=== PATIENT | male | born 1960 | race Caucasian/White ===

== ENCOUNTER → 2020-06-08 17:54 | Outpatient (CLI) | payer BC, SELFPAY ==
[2020-06-08 20:12] LABS: Coronavirus 19 IgG Antibody Negative (Negative); Coronavirus 19 IgM Antibody Negative (Negative)
== END ==
PROVIDERS: Visit Provider Internal Medicine Gastroenterology
DX: Z01.812 Encounter for preprocedural laboratory examination (principal)
CPT/HCPCS: 36415; 86328

== ENCOUNTER 2020-06-10 10:32 | Day surgery (SDC) | payer BC, SELFPAY ==
[2020-05-30 14:20] VITALS: BMI 23.6
[2020-06-10] VITALS (7 sets, daily range): BP systolic 105–170; BP diastolic 61–85; PULSE 49–58; RESP 18; TEMP 36.2–36.3; O2SAT 93–100
--- NOTE | 2020-06-10 11:48 | P.PN_ITS ---
[facility] Anesthesia Checklist - Structural Data Admitted From: Home Planned Operative Procedure/s: colonoscopy Consent for Planned Operative Procedure(s) Verified: Yes - Airway Assessment C-Spine Mobility Assessed: Yes TMJ Mobility Assessed: Yes Dentition: Poor Dentition - Neurological Assessment Level of Consciousness: Awake, Alert, Appropriate - Anesthesia Plan Anesthesia Risk discussed: Yes Anesthesia Plan: Verified ASA Class: III Anesthesia Type: MAC [facility] History I have reviewed the patient's past medical history: Yes Medical History: Denies:: Cancer, Diabetes Mellitus Type 1, Diabetes Mellitus Type 2, Internal Pacemaker, MRSA, Seizures *Have you ever received a pneumonia vaccine?: No *Have you received a flu vaccine this season?: Yes Anesthesia experience/problems:: none Laterality Cases: Left: Arthroscopy Hip, Other Other Surgeries: No: Pacemaker Amputation: No Fractures: No - *Social History Last grade of school completed: High school graduate Smoking Status: Former smoker Tobacco Type: cigarettes Alcohol Intake: current Alcohol Intake Frequency:: a few times a month Substance Use Type: marijuana *Occupational Status:: employed Housing: house Household Members: significant other *Travel in the last 8 weeks: None Family Hx:: Unable to obtain
--- NOTE | 2020-06-10 12:10 | P.PCN_ITS ---
[facility] Procedure Note Procedure Note:: Colonoscopy Procedure Report: Colonoscopy with cold snare polypectomy, cold biopsy, snare cautery and Endo Clip placement Endoscopist: Kyle Alvarado II, MD Referring physician: ANASTASIIA Esquivel Date of Procedure: June 10, 2020 Equipment: Olympus 180 variable stiffness pediatric colonoscope Sedation: MAC sedation Indication: Mr. Dubon is a 60-year-old gentleman who is here for follow-up screening/surveillance colonoscopy. He does state that his last colonoscopy was 8 or 9 years ago and he had a single polyp removed at that time. He does note rare spot of blood on the toilet tissue from hemorrhoids. He reports no abdominal pain, weight loss, change in his bowel habits or family history of colon cancer. Procedure: Prior to the procedure, a history and physical exam was performed, and patient's medications and allergies were reviewed. The risks, benefits and alternatives of the sedation and procedure were discussed with the patient. All questions were answered and informed consent was obtained. The patient was brought to the procedure room. Patient identification and proposed procedure were verified by the physician and the nurse. The patient was placed in a left lateral decubitus position and the scope was passed under direct vision. Throughout the procedure, the patient's blood pressure, pulse, and oxygen saturations were monitored continuously. The colonoscopy was accomplished without difficulty. The patient tolerated the procedure well. Findings: On digital rectal examination there was normal rectal tone. There were no external hemorrhoids. The prostate was 2+, smooth, soft, symmetric without nodules. The colonoscope was introduced through the anal canal to the rectum and advanced to the cecum. The ileocecal valve and appendiceal orifice were identified. The scope was advanced a short distance into the ileum which appeared grossly normal. There was a raised 4 to 5 mm ileal polypoid lesion that was removed via cold biopsy. The scope was then withdrawn into the colon. There were 4 diminutive polyps in the cecum and ascending colon that were 3 mm and all removed via cold snare polypectomy and placed in cecal formalin jar. There was much larger descending polyp at 40 cm that was 15 mm and removed via snare cautery. This was pedunculated. And Endo Clip was placed over the base of the polypectomy site with complete closure. There was a 6 another diminutive colon 4 mm polyp in the descending colon that was placed in the same formalin jar. Upon retroflexion within the rectum there were grade 1-2 internal hemorrhoids.The preparation was excellent throughout with [place] Preparation Score of 9. The cecal time was 14 minutes. Impression: 1. Descending colon polyp (15 mm) 2. Additional 5 diminutive colon polyps 3. Diminutive ileal nodule (4 to 5 mm) 4. Grade 1-2 internal hemorrhoids Plan: I will follow up the polyp pathology and recommend repeat colonoscopy again in 3 years based upon the polyp histology. I would encourage bulk fiber supplementation on a long-term daily maintenance basis.
== END 2020-06-10 13:17 | disposition home or self-care (01) ==
LOC: OUTP 10:36
PROVIDERS: PCP Nurse Practitioner; Visit Provider Internal Medicine Gastroenterology
PROC: 0DJD8ZZ Inspection of Lower Intestinal Tract, Via Natural or Artificial Opening Endoscopic (ICD-10-PCS; CPT 45378; principal; 2020-06-10 11:30)
DX: Z12.11 Encounter for screening for malignant neoplasm of colon (principal); Z86.010 Personal history of colon polyps; K63.5 Polyp of colon; K64.0 First degree hemorrhoids
CPT/HCPCS: 45385; 45380

== ENCOUNTER 2021-10-15 10:43 | Emergency (ER) | payer BC, SELFPAY ==
[2021-10-15 11:00] VITALS: BP 141/82; PULSE 72; RESP 19; TEMP 37.1; O2SAT 99; BMI 25.3
--- NOTE | 2021-10-15 11:08 | HMH.EDUTC ---
[facility] [place] Impression: [place] eye disease of left eye Disposition: Home, Self-Care Condition on Discharge: Good Instructions: DI for Conjunctivitis Additional Instructions: follow up with eye md tomorrow apply drops if worsen or no improvement return or be seen in ed Prescriptions: Sulfacetamide Sodium [Sulf-10% opth soln 15mL] 1 drp OP Q6 #15 ml Transmission Status: Pending to [id number] Referrals: Marylou Hardy APRN [Primary Care Provider] - Time of Disposition: 11:13 Medical Decision Making - Gurpreet Inquiry Pt receiving controlled substance: No Vital Signs: 10/15/21 11:00 Temperature 98.7 F Temperature Source Oral Pulse Rate [Right Brachial] 72 Respiratory Rate 19 Blood Pressure [Right Arm] 141/82 H Blood Pressure Mean [Right Arm] 101 Blood Pressure Source [Right Arm] Automatic Cuff Blood Pressure Position [Right Arm] Sitting 02 Sat by Pulse Oximetry 99 Oxygen Delivery Method Room Air [facility] [place] - General Chief complaint: Urgent [facility] Stated complaint: eye pain, unknown origin Time Seen by Provider: 10/15/21 11:08 Mode of Arrival: Ambulatory Source of Information: Patient Limitations: No Limitations Description of Symptoms (Recalled from Triage Doc. by RN): PATIENT C/O REDNESS AND DRAINAGE TO LEFT EYE X 4 DAYS HEENT Symptoms (Recalled from RN notes): Yes Resp Symptoms (Recalled from RN notes): No Skin Symptoms (Recalled from RN notes): No MS Symptoms (Recalled from RN notes): No Functional Status (Recalled from RN notes): WNL - History of Present Illness Provider Complaint: 61 yr old male presnets for left eye drainage and red eye for 3 days. pt states he keeps getting thick green drainage and his eye is sensitive to light. no injury - Related Data Home Medications Medication Instructions Recorded Confirmed atorvastatin 20 mg tablet 20 mg PO DAILY 06/16/21 06/16/21 loratadine 10 mg capsule 10 mg PO DAILY 06/16/21 06/16/21 promethazine-DM 6.25 mg-15 mg/5 mL 5 ml PO Q4-6H PRN 06/16/21 06/16/21 oral syrup triamcinolone acetonide 0.1 % 1 applic TOPICAL BID 06/16/21 06/16/21 topical cream Previous Rx's Medication Instructions Recorded Sulfacetamide Sodium [Sulf-10% 1 drp OP Q6 #15 ml 10/15/21 opth soln 15mL] Allergies Allergy/AdvReac Type Severity Reaction Status Date / Time NO KNOWN DRUG ALLERGIES - Allergy Unknown Uncoded 05/21/17 14:54 NKDA - Worker's Comp Is this a Worker's Comp case?: No [facility] History - Hepatitis A Screen Attestation statement:: This patient has been screened for Hepatitis A risk factors. I have reviewed the patient's past medical history: Yes Medical History: Reports:: Hyperlipidemia Denies:: Cancer, Diabetes Mellitus Type 1, Diabetes Mellitus Type 2, Internal Pacemaker, MRSA, Seizures Other Medical History: Reports: Glaucoma Laterality Cases: Left: Arthroscopy Hip, Other Other Surgeries: Yes: No Previous Surgery, Colonoscopy. No: Pacemaker Amputation: No Fractures: No Comment: left hip and left elbow surgery - Social History Smoking Status: Former smoker Tobacco Type: cigarettes Alcohol Intake: current Alcohol Intake Frequency:: a few times a month Substance Use Type: marijuana Occupational Status: employed Housing: house Household Members: significant other Family Hx:: Unable to obtain ROS Obtained: Yes Systems reviewed as appropriate & no additional complaints - Constitutional Constitutional: Reports system reviewed and no additional complaints, except as docu, Denies fever(s) - Eyes Eyes: Reports system reviewed and no additional complaints, except as docu, Reports eye discharge, Reports irritation, Reports sensitivity to light - ENT Ears, Nose, Mouth, and Throat: Reports system reviewed and no additional complaints, except as docu, Denies dizziness - Cardiovascular Cardiovascular: Reports system reviewed and no additional complaints, except as docu, Denies chest pain
[2021-10-15 11:11] VITALS: BP 141/82; PULSE 72; RESP 19; TEMP 37.1; O2SAT 99
== END 2021-10-15 11:18 | disposition home or self-care (01) ==
PROVIDERS: Emergency Provider Nurse Practitioner Family; PCP Nurse Practitioner Family
DX: H10.022 Other mucopurulent conjunctivitis, left eye (principal)
CPT/HCPCS: 99212; G0463

== ENCOUNTER → 2023-01-05 08:46 | Outpatient (CLI) | payer BC, SELFPAY ==
[2023-01-05 09:11] LABS: Basophils # 0.1 K/mm3 (0-0.2); Basophils % 0.8 % (0.1-2.0); Eosinophils # 0.4 K/mm3 (0.0-0.4); Eosinophils % 3.9 % (0.1-12.0); Hematocrit 49.2 % (42.0-52.0); Hemoglobin 15.9 g/dL (14.1-18.0); Lymphocytes # 3.2 K/mm3 (0.7-4.5); Mean Corpuscular HGB Conc 32.4 g/dL (31.8-35.4); Mean Corpuscular Hemoglobin 29.1 pg (27.0-31.2); Mean Corpuscular Volume 89.8 fl (80-94); Mean Platelet Volume 7.6 fl (7.4-10.4); Monocytes # 0.6 K/mm3 (0.1-1.0); Monocytes % 5.9 % (1.7-9.3); Neutrophils # 5.7 K/mm3 (1.8-7.8); Neutrophils % 57.4 % (37.0-80.0); Platelet Count 389 K/mm3 (142-424); Red Blood Count 5.48 M/mm3 (4.60-6.20); Red Cell Distribution Width 13.3 % (11.5-17.5); White Blood Count 9.8 K/mm3 (4.8-10.8)
[2023-01-05 10:22] LABS: Alanine Aminotransferase 22 U/L (12-78); Albumin Level 4.8 g/dl (3.5-5.0); Albumin/Globulin Ratio 1.5 (1.1-1.8); Alkaline Phosphatase 96 U/L (38-126); Aspartate Amino Transferase 26 U/L (17-59); Bilirubin,Total 0.4 mg/dl (0.2-1.3); Blood Urea Nitrogen 17 mg/dl (9-20); Calcium 10.2 mg/dl (8.4-10.2); Carbon Dioxide 24 mmol/L (22.0-30.0); Chloride 110 mmol/L (98-107); Chol/HDL Ratio 5.4 (1-3.5); Cholesterol 299 mg/dl (140-200); Estimated Glomerular Filt Rate 98 ml/min (>60); GFR (African American) 118 ML/MIN (>60); Globulin 3.1 g/dL (1.3-3.2); Glucose 94 mg/dl (74-100); HDL Cholesterol 55 mg/dl (40-60); Sodium 143 mmol/L (136-145); Total Protein,Serum 7.9 g/dl (6.3-8.2); Triglycerides 208 mg/dl (30-150); VLDL Cholesterol 42 mg/dL (0-40)
[2023-01-05 10:32] LABS: Direct LDL Cholesterol 170.71 mg/dL (100-129)
[2023-01-05 10:52] LABS: Thyroid Stimulating Hormone 1.56 uIU/mL (0.465-4.68)
== END ==
PROVIDERS: PCP Nurse Practitioner Family; Visit Provider Nurse Practitioner Family
DX: R00.1 Bradycardia, unspecified (principal)
CPT/HCPCS: 36415; 80053; 80061; 83735; 84443; 85025

== ENCOUNTER → 2023-01-17 14:33 | Outpatient (CLI) | payer BC, SELFPAY ==
[2023-01-17 15:57] LABS: Alanine Aminotransferase 25 U/L (12-78); Albumin Level 4.4 g/dl (3.5-5.0); Alkaline Phosphatase 84 U/L (38-126); Aspartate Amino Transferase 25 U/L (17-59); Bilirubin,Indirect 0.2 mg/dL (0.0-0.9); Bilirubin,Total 0.2 mg/dl (0.2-1.3); Bilirubin,Unconjugated 0.4 mg/dL (0.0-1.1); Chol/HDL Ratio 3.6 (1-3.5); Cholesterol 129 mg/dl (140-200); HDL Cholesterol 36 mg/dl (40-60); Total Protein,Serum 6.9 g/dl (6.3-8.2); Triglycerides 179 mg/dl (30-150); VLDL Cholesterol 36 mg/dL (0-40)
[2023-01-17 16:08] LABS: Direct LDL Cholesterol 65.73 mg/dL (100-129)
== END ==
PROVIDERS: PCP Nurse Practitioner Family; Visit Provider Nurse Practitioner Family
DX: E78.5 Hyperlipidemia, unspecified (principal); I11.9 Hypertensive heart disease without heart failure; R00.1 Bradycardia, unspecified
CPT/HCPCS: 36415; 80061; 80076

== ENCOUNTER → 2023-01-23 14:22 | Outpatient (CLI) | payer BC, SELFPAY | PROVIDERS: PCP Nurse Practitioner Family; Visit Provider Nurse Practitioner Family | DX: R00.1 Bradycardia, unspecified (principal) | CPT/HCPCS: 93225 ==

== ENCOUNTER → 2023-02-11 10:26 | Outpatient (CLI) | payer BC, SELFPAY ==
--- NOTE | 2023-02-11 10:29 | CA_ITS ---
APPROVED REPORT EXAM: Comprehensive 2D, Doppler, and color-flow Echocardiogram Court Officer: Jaye Gutierrez RDCS Ht: 5 ft 8 in Wt: 160lbs BSA: 1.86 BP: 142/70 mmHg Indications: Arrhythmia, Hyperlipidemia, Hypertension/HDD,Bradycardia 2D Dimensions LVOT 2.01 cm (M/F) 1.5-2.5 M-Mode Dimensions RVDd 2.57 cm (0.9-2.6) LA Diam 0.00 cm (1.9-4.0) LVDd 5.25 cm (3.5-5.7) Ao Diam 3.30 cm (2.0-3.7) LVDs 3.36 cm (3.5-5.7) IVSd 1.00 cm (0.6-1.1) PWd 0.93 cm (0.6-1.1) EF (Teich) 65.20% FS 36.00% EDV (Teich) 132.40 mL TAPSE 2.33 (<1.7) ESV (Teich) 46.10 mL LV Diastology E Decel Time 170.00 (160-240 msec) E/A Ratio 1.4 MED E' 8.80 (< 7 cm/sec) E'/MED E' Ratio 10.20 (>14) LAT E' 8.40 (<10 cm/sec) E/LAT E' Ratio 10.69 (>14) Mitral Valve MV E Max Hilario. 90.00 (40-130 cm/s) MV A Velocity 65.00 (40-130 cm/s) E/A Ratio 1.39 MV Decel. Time 170.00 (160-240 ms) MV PHT 50.00 ms Left Ventricle The left ventricle is normal size. The left ventricular systolic function is normal. The left ventricular ejection fraction is within the normal range. There is normal left ventricular wall thickness. There is normal LV segmental wall motion. The left ventricular diastolic function is normal. LVEF is 60%. Right Ventricle The right ventricle is normal size. The right ventricular systolic function is normal. Atria The left atrium size is normal. The right atrium size is normal. There is no Doppler evidence of interatrial shunt. Aortic Valve The aortic valve opens well. There is no aortic valvular stenosis. No aortic regurgitation is present. Mitral Valve The mitral valve is normal in structure. No evidence of mitral valve stenosis. Trace mitral regurgitation. Tricuspid Valve The tricuspid valve leaflets are thin and pliable. Trace tricuspid regurgitation. There is insufficient TR jet to estimate RVSP. Pulmonic Valve The pulmonary valve is normal in structure. Trace pulmonic regurgitation. Great Vessels The aortic root is normal in size. The ascending aorta is normal in size. IVC is normal in size and collapses >50% with inspiration. Pericardium There is no pericardial effusion. Other Information Study Quality: Adequate Conclusion Normal biventricular systolic function. No significant valvular disease. Electronically signed by : Anita Cole, 02/14/2023 22:01:18
== END ==
LOC: RT 10:27
PROVIDERS: PCP Nurse Practitioner Family; Visit Provider Obstetrics & Gynecology
DX: R00.1 Bradycardia, unspecified (principal); E78.5 Hyperlipidemia, unspecified; I10 Essential (primary) hypertension
CPT/HCPCS: 93306

== ENCOUNTER 2023-06-23 12:10 | Emergency (ER) | payer BC, SELFPAY ==
[2023-06-23 13:10] VITALS: BP 146/82; PULSE 102; RESP 20; TEMP 37.4; O2SAT 95; BMI 24.0
[2023-06-23 13:33] LABS: UTC Influenza A Antigen Negative (Negative); UTC Influenza B Antigen Negative (Negative)
[2023-06-23 13:44] VITALS: BP 146/82; PULSE 102; RESP 20; TEMP 37.4; O2SAT 95
--- NOTE | 2023-06-23 13:44 | ED_ITS ---
Discharge Plan Disposition Patient Disposition: Home, Self-Care Condition: Good Prescriptions Prescriptions: No Action aspirin 81 mg tablet 81 mg PO DAILY rosuvastatin [Crestor] 10 mg tablet 10 mg PO DAILY Qty: 30 2RF Referrals Follow up/Referrals: Jason Sanchez MD [Primary Care Provider] - See instructions Activity Restrictions/Add. Instructions Additional Instructions/Restrictions: Monitor Temp, Over the counter Motrin and/or Tylenol as directed/as needed Tylenol every 4 hours and Motrin every 6 hours (as long as your family doctor has told you that you can take it) for fever or pain. and straight to ER if unable to lower temp less than 101.0 after medication given *Make sure you are drinking plenty of fluids *Sleep elevated *Humidifier/Vaporizer may help with nasal congestion and cough Follow up IMMEDIATELY for new or worsening symptoms or no Noticeable improvement over the next 48-72 hours. 911 for difficulty breathing or swal lowing You were tested for today for Upper Respiratory Panel with COVID19 your test result should be back in the next 24hours, you may check your results on the [facility] Clinical Impressions Clinical Impression: Flu-like symptoms Stand Alone Forms Stand Alone Forms: Work/School Release Instructions Patient Instructions: DI for Viral Syndrome, DI for Fever (Symptom) -- Adult, Ibuprofen, Acetaminophen (Alternative Therapy) Discharge ED Provider: Gloria Ortiz [facility] General Stated complaint: bodyaches, headaches Mode of Arrival: Ambulatory Source of Information: Patient Limitations: No Limitations Time Seen by Provider: 06/23/23 13:45 Description of Symptoms (Recalled from Triage Doc. by RN): PATIENT C/O HEADACHE, CHILLS, AND BODY ACHES X 2 DAYS HEENT Symptoms (Recalled from RN notes): Yes Resp Symptoms (Recalled from RN notes): No Skin Symptoms (Recalled from RN notes): No MS Symptoms (Recalled from RN notes): No Functional Status (Recalled from RN notes): WNL History of Present Illness Provider Complaint: Patient states that he was fine until yesterday evening around 4pm then he started with body aches, chills, headache and feeling achy all over that has continued today with fever chills and body aches states that he feels like he has the flu Denies SOA Related Data Home Medications Medication Instructions Recorded Confirmed aspirin 81 mg tablet 81 mg PO DAILY 01/17/23 02/13/23 Previous Rx's Medication Instructions Recorded rosuvastatin 10 mg tablet (Crestor) 10 mg PO DAILY #30 tabs 01/17/23 Allergies Allergy/AdvReac Type Severity Reaction Status Date / Time No Known Allergies Allergy Verified 02/13/23 08:48 Worker's Comp Is this a Worker's Comp case?: No [facility] Disclaimer: The information contained in this section may have been updated after the patient was seen, as this information can be updated by other users. 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 current occupational exposures/hazards: No caffeine: Yes ROS Obtained: Yes All systems reviewed & no additional complaints except as documented and Yes Systems reviewed as appropriate & no additional complaints except as documented Constitutional Constitutional: Reports system reviewed and no additional complaints, except as documented, Reports as per HPI, Reports body ache, Reports chills, Reports fever(s) and Reports headache(s) ENT Ears, Nose, Mouth, and Throat: Reports system reviewed and no additional complaints, except as documented, Reports as per HPI and Reports headache(s) Cardiovascular Cardiovascular: Reports system reviewed and no additional complaints, except as documented, Reports as per HPI and Denies chest pain Respiratory Respiratory: Reports system reviewed and no additional complaints, except as documented, Reports as per HPI, Denies shortness of breath, Denies chest congestion and Denies cough Gastrointestinal Gastrointestingal: Reports system reviewed and no additional complaints, except as documented and as per HPI Neurologic Neurologic: Reports headache(s) Physical Exam General General appearance: alert and in no apparent distress ENT ENT exam: Present mucous membranes moist Expanded ENT Exam Nose exam: Absent sinus tenderness Throat exam: Present normal inspection Respiratory Respiratory exam: Present normal lung sounds bilaterally; Absent respiratory distress or wheezes Cardiovascular Cardiovascular exam: Present regular rate, normal rhythm and normal heart sounds Abdominal Exam Abdominal exam: Present soft and normal bowel sounds; Absent distention or tenderness Neurological Exam Neurological exam: Present alert, oriented X3 and normal gait Medical Decision Making Gurpreet Inquiry Pt receiving controlled substance: No Gurpreet was queried for this patient: No Vital Signs: 06/23/23 13:10 Temperature 99.3 F Temperature Source Oral Pulse Rate [Left Brachial] 102 H Respiratory Rate 20 Blood Pressure [Left Arm] 146/82 H Blood Pressure Mean [Left Arm] 103 Blood Pressure Source [Left Arm] Automatic Cuff Blood Pressure Position [Left Arm] Sitting 02 Sat by Pulse Oximetry 95 Oxygen Delivery Method Room Air Lab Data Lab results reviewed: Yes I reviewed the patient's lab results. Lab Results 06/23/23 13:24: Influenza Type A Ag Negative, Influenza Type B Ag Negative
[2023-06-23 14:02] LABS: Adenovirus,PCR Not Detected (NotDetected); Coronavirus 19, PCR Not Detected (NotDetected); Coronavirus 229E Not Detected (NotDetected); Coronavirus NL63 Not Detected (NotDetected); Coronavirus OC43 Not Detected (NotDetected); Coronovirus HKU1,PCR Not Detected (NotDetected); Human Metapneumovirus Not Detected (NotDetected); Influenza A, PCR Not Detected (NotDetected); Influenza AH1, 2009 Not Detected (NotDetected); Influenza AH1, PCR Not Detected (NotDetected); Influenza B, PCR Not Detected (NotDetected); Parainfluenza 1, PCR Not Detected (NotDetected); Parainfluenza 2, PCR Not Detected (NotDetected); Parainfluenza 3, PCR Not Detected (NotDetected); Parainfluenza 4, PCR Not Detected (NotDetected); Respiratory Syncytial Virus Not Detected (NotDetected); Rhinovirus/Enterovirus Not Detected (NotDetected)
[2023-06-23 16:19] LABS: Influenza AH3,PCR Detected (NotDetected)
== END 2023-06-23 13:54 | disposition home or self-care (01) ==
PROVIDERS: Emergency Provider Nurse Practitioner; PCP Family Medicine
DX: J10.1 Influenza due to other identified influenza virus with other respiratory manifestations (principal); R50.9 Fever, unspecified; R51.9 Headache, unspecified; M79.18 Myalgia, other site; E78.5 Hyperlipidemia, unspecified; I10 Essential (primary) hypertension; Z87.891 Personal history of nicotine dependence
CPT/HCPCS: 87632; 87635; 87804; 99212; 99214; G0463

== ENCOUNTER 2024-08-25 11:48 | Outpatient (CLI) | payer BC, SELFPAY ==
--- NOTE | 2024-08-25 11:52 | XR_ITS ---
FINAL REPORT CLINICAL HISTORY: fall saturday; c/o left shoulder pain COMPARISON: None FINDINGS: 3 views of the left shoulder were obtained. There is no fracture or dislocation. The joint space is preserved. Soft tissues are unremarkable. IMPRESSION: No acute osseous abnormality of the left shoulder. Reviewed, Interpreted and Dictated by Ophelia Costa MD Transcribed by Missy Keating Authenticated and [facility]
--- NOTE | 2024-08-25 11:52 | XR_ITS ---
FINAL REPORT CLINICAL HISTORY: FALL AND PAIN fall saturday; left sided pain FINDINGS: CERVICAL SPINE AP, lateral and oblique views of the cervical spine were obtained. There is no prior exam for comparison. There is no acute fracture or malalignment. Multilevel degenerative disc disease is most pronounced at C6-7. The precervical soft tissues are normal. IMPRESSION: No acute osseous abnormality. THORACIC SPINE AP, lateral, and oblique views of the thoracic spine were obtained. There is no prior exam for comparison. There is no acute fracture or malalignment. Multilevel degenerative disc disease is noted. No acute paraspinal abnormality. IMPRESSION: No acute osseous abnormality. LUMBOSACRAL SPINE AP and lateral views of the lumbosacral spine were obtained. There is no prior exam for comparison. There is no acute fracture or malalignment. Vertebral body heights are preserved. There is multilevel degenerative disc disease which is most pronounced in the upper lumbar spine. No acute paraspinal abnormality. IMPRESSION: No acute osseous abnormality. Reviewed, Interpreted and Dictated by Ophelai Costa MD Transcribed by Missy Keating Authenticated and [facility]
== END 2024-08-25 23:59 | disposition home or self-care (01) ==
LOC: RAD 11:49
PROVIDERS: PCP Nurse Practitioner; Visit Provider Nurse Practitioner
DX: M25.512 Pain in left shoulder (principal); M54.9 Dorsalgia, unspecified
CPT/HCPCS: 72084; 73030

== ENCOUNTER 2024-11-21 14:23 | Emergency (ER) | payer BC, SELFPAY ==
--- OUTSIDE RECORDS SUMMARY | 2024-09-28 00:17 | XMS_ITS | Continuity of Care Document ---
Author Organization [facility] Phone Care Team Providers Care Offal Worker Name Role Phone OLGA DAVILA Admitting RENETTA SUAZO Primary Care OLGA DAVILA Primary Attending ALLERGIES AND ADVERSE REACTIONS ALLERGIES AND ADVERSE REACTIONS Code System Allergy Substance Adverse Reaction Date Reaction (Severity) Comment Status Reported By Updated By No Known Allergies [id number] on March 13, 2024 11:29:01 AM [facility] RESULTS Patient: ALISON Tabares Date of : January 06 LABORATORY RESULTS ORDER 200: PROSTATE SPECIFIC AG PSA (LOINC: 2857-1) ORDER DATE: September 24, 2024 9:19:00 PM [facility] Specimen Source: PLASMA Specimen Type: Plasma specim en PERFORMING LAB: [address] [id number] Result Comment: Final Result Date: September 24, 2024 10:14:00 PM [facility] (TECH: RR) LOINC TEST FLAG RESULT REFERENCE RANGE UPDA WARREN BY 2857-1 Prostate specific Ag [Mass/volume] in Serum or Plasma H 9.2 ng/mL 0 ng/mL - 4.0 ng/mL September 24 10:14:00 PM [facility] (TECH: RR) LABORATORY NARRATIVE RESULTS Information is not available RADIOLOGY RESULTS Information is not available PATHOLOGY NARRATIVE RESULTS Information is not available MICROBIOLOGY RESULTS No Micro Labs/Results Exist for Patient BLOOD ADMIN RESULTS Information is not available MEDICATIONS HOME MEDICATIONS Status RXNORM NDC Medication Dose Route Frequency Dates Comments Reported By Updated By Drug Treatment Unknown DISCHARGE MEDICATIONS Status RXNORM NDC Medication Dose Route Frequency Dates Comments Physician Updated By No Discharge Medication Info rmation Available INPATIENT MEDICATIONS Status RXNORM NDC Medication Dose Route Frequency Rat e Quantity Dates Comments Physician Updated By No Inpatient Medication Info rmation Available SOCIAL HISTORY SOCIAL HISTORY SNOMED-CT Social History Element Description Effective Dates Offered Cessation Comment UpdatedBy [id number] Historical Tobacco smoking status Former Smoker [id number] on March 12, 2024 2:39:46 PM [facility] SOCIAL HISTORY - Gender Sex: Male SOCIAL HISTORY - Status : status i nformation is not available Intention in Next Year: intention information is not available SOCIAL HISTORY - Sexual Behavior Sexual Orientation Gender Identity SNOMED-CT Description SNO MED -CT Description Activity Level No of Partners Partner Type UpdatedBy Information is not available HEALTH CONCERNS Problems Concern Status Health Concern problem infor mation not available. Smoking Status Status Years Used Consumed packs p er day Health Concern smoking histo ry information not available. Family History Concern Status Health Concern family histor y information not available. ENCOUNTERS ENCOUNTER INFORMATION Reason for Visit LABS Admission September 24, 2024 8:42:[address] [id number] Discharge September 24, 2024 8:42:00 PM [facility] DI SCHARGED TO HOME OR SELF CARE ENCOUNTER DIAGNOSES Notes information is not bobbi ilable. Code System Diagnosis Onset Date Diagnosis information is not available. 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 Role on Team Status Start Date End Date Update d By LAKEISHA LAURENT PCP normal September 24, 2024 4:00:00 AM [facility] September 24, 2024 8:42:00 PM [facility] [id number] on September 24, 2024 8:43:45 PM [facility] ART OLGA ODONNELL Attending normal September 24 4:00:00 AM [facility] September 24, 2024 8:42:00 PM [facility] [id number] on September 24, 2024 8:43:45 PM [facility] ART OLGA ODONNELL Admitting normal September 24 4:00:00 AM [facility] September 24, 2024 8:42:00 PM [facility] [id number] on September 24, 2024 8:43:45 PM [facility]
--- OUTSIDE RECORDS SUMMARY | 2024-10-05 10:00 | XMS_ITS | Encounter Summary ---
Author Organization [facility] Address [address] [place] [address] Care Team Providers Care Tire Changer Aircraft Name Role Phone Mello Sanchez MD Primary Care Provider [phone] Reason for Visit * Reason Comments Follow-up Encounter Details Date Type Department Care Team (Late st Contact Info) Description 10/05/2024 10:00 AM EDT Office Visit [facility] [address] [place] [address] Panfilo Hernandez MD [address] [place] [phone] Other secondary cataract of both eyes (Primary Dx); Primary open angle glaucoma (POAG) of both eyes, severe stage Social History Tobacco Use Types Packs/Day Years Used Date Smoking Tobacco: Former Cigarettes 1 43 1 976 - 2019 Passive Smoke Exposure: Past Smokeless Tobacco: Never Sex and Gender Information Value Date Recorded Sex Assigned at Not on file Legal Sex Male 8:37 PM EDT Gender Identity Not on file Sexual Orientation Not on file documented as of this encounter Miscellaneous Notes * Progress Notes - Panfilo Hernandez MD - 10/05/2024 10:00 AM EDT 1) Advanced stage OAG BE, LE>RE: - [place] with ?goniotomy and [facility] at [facility] both eyes in 2022. 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 Cost of SLT Electronically Signed by: Chan Borden MD - 10/05/2024 - 10:22 AM I saw and evaluated the patient with the resident/fellow. I discussed the case with the resident/fellow and agree with the findings and plan as documented. Panfilo Hernandez MD documented in this encounter Plan of Treatment Upcoming Encounters Date Type Department Care Team (Late st Contact Info) Description 01/04/2025 11:30 AM EDT Office Visit [facility] [address] [place] [address] Panfilo Hernandez MD [address] [address] documented as of this encounter Visit Diagnoses Diagnosis Other secondary cataract of both eyes- Primary Primary open angle glaucoma (POAG) of both eyes, severe stage documented in this encounter Additional Health Concerns Assessment Noted Time A fall risk assessment has been complete d for the patient 10/05/2024 9:54 AM EDT A Body Mass Index follow-up plan has been documented for the patient 10/05/2024 10:51 AM EDT documented as of this encounter Care Teams Tire Changer Aircraft Relationship Specialty Start Date End Date Mello Sanchez MD [address] [place] [address] [address] [place] [address] PCP - General 10/14/20 documented as of this encounter
--- OUTSIDE RECORDS SUMMARY | 2024-11-21 14:29 | XMS_ITS | Clinical Summary ---
Author Organization [facility] [employer] Address [address] [place] [address] Care Team Providers Care Aerospace Manager Name Role Phone Unavailable Primary Care Provider Unavailabl e Encounters Date Type Department Care Team Description 10/28/[address] [facility] Central Scheduling [address] [place] [address] Jeronimo Gee MD Elevated prostate specific antigen (PSA) (Primary Dx) from Last 3 Months Social History Tobacco Use Types Packs/Day Years Used Date Smoking Tobacco: Never Assessed Sex and Gender Information Value Date Recorded Sex Assigned at Not on file Legal Sex Male 2:17 PM CDT Gender Identity Not on file Sexual Orientation Not on file Plan of Treatment Health Maintenance Due Date Last Done Comments CT Colonography 1959 Colonoscopy 1959 Colorectal Cancer Screening 1959 FOBT/FIT 1959 Fit-DNA (Cologuard) 1959 Sigmoidoscopy 1959 Depression Screening (12+) 1971 Tobacco Cessation Counseling and Screening (12+) 01/06 HIV Screening 1974 Hepatitis C Screening 1977 DTAP/TDAP/TD VACCINES (1 - Tdap) 1978 Lipid Panel 1994 Pneumococcal 50+ years (1 of 1 - PCV) 2009 Shingles Vaccine (Zoster) (1 of 2) 2009 COVID-19 VACCINE (2 - season) 02/02/202412/2021 Falls Risk Screening 06/03/2024 Influenza Vaccine (Season Ended) 2025 Respiratory Syncytial Virus (RSV) Adult or (1 - 1-dose 75+ series) 2034 Insurance BLUE CROSS/BLUE SHIELD
--- OUTSIDE RECORDS SUMMARY | 2024-11-21 14:29 | XMS_ITS | Referral Summary ---
Author Organization [employer] [facility] Address [address] [place] [address] Care Team Providers Care Associate Art Director Name Role Phone Unavailable Primary Care Provider Unavailabl e Encounters Date Type Department Care Team Description 10/28/2024 Outside Orders [facility] Central Scheduling [address] [place] [address] Jeronimo Gee MD Elevated prostate specific antigen (PSA) (Primary Dx) from Last 3 Months Social History Tobacco Use Types Packs/Day Years Used Date Smoking Tobacco: Never Assessed Sex and Gender Information Value Date Recorded Sex Assigned at Not on file Legal Sex Male 2:17 PM CDT Gender Identity Not on file Sexual Orientation Not on file Plan of Treatment Not on file Insurance BLUE CROSS/BLUE SHIELD
--- OUTSIDE RECORDS SUMMARY | 2024-11-21 14:29 | XMS_ITS | Clinical Summary ---
Author Organization [facility] Address [address] [place] [address] Care Team Providers Care Cultural Centre Manager Name Role Phone Mello Sanchez MD Primary Care Provider [phone] Allergies Active Allergy Reactions Criticality Noted Date Comments Brimonidine Other - please docum ent in the comment field Medium 10/07/2024 Eye swelling Medications dorzolamide-timolo l (Cosopt) 2-0.5 % ophthalmic solution 06/29/2024 Active Vyzulta 0.024 % solution 05/11/2024 Active tamsulosin (Flomax) 0.4 MG 24 hr capsule 06/04/2024 Active Aspirin Buf,CaCarb-MgCarb- MgO, 81 MG tablet 09/07/2014 A ctive POTASSIUM PO 09/07/2014 Active Active Problems Problem Noted Date Diagnosed Date Primary open angle glaucoma (POAG) of both eyes, severe stage 09/29/2024 Secondary cataract of both eyes 07/10/2024 Encounters Date Type Department Care Team Description 10/07/2024 Telephone [facility] [address] [place] [address] Panfilo Hernandez MD 10/05/2024 10:00 AM EDT Office Visit [facility] [address] [place] [address] Panfilo Hernandez MD Other secondary cataract of both eyes (Primary Dx); Primary open angle glaucoma (POAG) of both eyes, severe stage 10/05/2024 Travel from Last 3 Months Family History Medical History Relation Name Comments COPD Father COPD Mother Relation Name Status Comments Father Mother Social History Tobacco Use Types Packs/Day Years Used Date Smoking Tobacco: Former Cigarettes 1 43 1 976 - 2019 Passive Smoke Exposure: Past Smokeless Tobacco: Never Tobacco Cessation:Counseling Given: Not Answered Sex and Gender Information Value Date Recorded Sex Assigned at Not on file Legal Sex Male 8:37 PM EDT Gender Identity Not on file Sexual Orientation Not on file Last Filed Vital Signs Vital Sign Reading Time Taken Comments Blood Pressure - - Pulse - - Temperature - - Respiratory Rate - - Oxygen Saturation - - Inhaled Oxygen Concentration - - Weight 71.7 kg (158 lb 0.1 oz) 09/07/2014 2:25 P M EDT Height 175.3 cm (5' 9 ) 09/07/2014 2:25 PM EDT Body Mass Index 23.33 09/07/2014 2:25 PM EDT Plan of Treatment Upcoming Encounters Date Type Department Care Team (Late st Contact Info) Description 01/04/2025 11:30 AM EDT Office Visit [facility] [address] [place] [address] Panfilo Hernandez MD [address] [address] Health Maintenance Due Date Last Done Comments [facility]-Depression Screening 1959 [facility]-Hepatitis C Screening 1959 [facility]-Infant/Child/Adol SDOH Screenings 1959 [facility]- SDOH Screenings 1977 [facility]-Adult SDOH Screenings 1977 [facility]-DTaP,Tdap,and Td Vaccine s (1 - Tdap) 1978 CT Colonography 01/07/2004 Colonoscopy 01/07/2004 FIT-DNA 01/07/2004 FIT 01/07/2004 FOBT 01/07/2004 Sigmoidoscopy 01/07/2004 [facility]-Colorectal Cancer Screening 01/07/2004 [facility]-Lung Cancer Screening 2009 [facility]-Pneumococcal Vaccine: 50 + Years (1 of 1 - PCV) 2009 [facility]-Zoster Vaccines (1 of 2) 2009 [facility]-Abdominal Aortic Aneurys m (AAA) Screening 01/07/2024 [id number] Vaccine (2 - 20 24-25 season) 2024 06/09/2021 [facility]-Influenza Vaccine (Seaso n Ended) 2025 [facility]-RSV Vaccine: 60+ Years o r (1 - 1-dose 75+ series) 2034 HPV Vaccines Aged Out No longer eligi ble based on patient's age to complete this topic [facility]-HIB Vaccines Aged Out No longer e ligible based on patient's age to complete this topic [facility]-Hepatitis A Vaccines Aged Out No longer eligible based on patient's age to complete this topic [facility]-IPV Vaccines Aged Out No longer e ligible based on patient's age to complete this topic [facility]-Rotavirus Vaccines Aged Out No lo nger eligible based on patient's age to complete this topic Insurance [place] [id number] [facility] MEDICARE Care Teams Cultural Centre Manager Relationship Specialty Start Date End Date Mello Sanchez MD [address] [place] [address] [address] [place] [address] [facility] - General 10/14/20
--- OUTSIDE RECORDS SUMMARY | 2024-11-21 14:29 | XMS_ITS | Encounter Summary ---
Author Organization [facility] Address [address] [place] [address] Care Team Providers Care Web Site Specialist Name Role Phone Mello Sanchez MD Primary Care Provider [phone] Encounter Details Date Type Department Care Team (Latest Contact Info) Description 10/05/2024 Travel Social History Tobacco Use Types Packs/Day Years Used Date Smoking Tobacco: Former Cigarettes 1 43 1 976 2019 Passive Smoke Exposure: Past Smokeless Tobacco: Never Sex and Gender Information Value Date Recorded Sex Assigned at Not on file Legal Sex Male 8:37 PM EDT Gender Identity Not on file Sexual Orientation Not on file documented as of this encounter Plan of Treatment Upcoming Encounters Date Type Department Care Team (Late st Contact Info) Description 01/04/2025 11:30 AM EDT Office Visit [facility] [address] [place] [address] Panfilo Hernandez MD [address] [address] documented as of this encounter Visit Diagnoses Not on filedocumented in this encounter Additional Health Concerns Assessment Noted Time A fall risk assessment has been complete d for the patient 10/05/2024 9:54 AM EDT A Body Mass Index follow-up plan has been documented for the patient 10/05/2024 10:51 AM EDT documented as of this encounter Care Teams Web Site Specialist Relationship Specialty Start Date End Date Mello Sanchez MD [address] [place] [address] [address] [place] [address] PCP - General 10/14/20 documented as of this encounter
--- OUTSIDE RECORDS SUMMARY | 2024-11-21 14:29 | XMS_ITS | Encounter Summary ---
Author Organization [facility] [facility] Address [address] [place] [address] Care Team Providers Care Software Test Developer Name Role Phone Unavailable Primary Care Provider Unavailabl e Reason for Referral * MRI (Routine) - Authorized Specialty Diagnoses / Procedures Referred By Contac t Referred To Contact Radiology Diagnoses Elevated prostate specific antigen (PSA) Procedures MR prostate without & with IV contrast Jeronimo Gee MD [address] [address] Phone: tel: fax: [facility] [address] [facility] [address] [place] [address] Phone: tel: fax: Referral ID Status Reason Start Date Expiration Date V isits Requested Visits Authorized [id number] Authorized 10/28/2024 10/28/2025 1 1 Encounter Details Date Type Department Care Team (Late st Contact Info) Description 10/28/2024 Outside Orders [facility] Central Scheduling [address] [place] [address] Jeronimo Gee MD 211 [facility] [address] [place] [address] Elevated prostate specific antigen (PSA) (Primary Dx) Social History Tobacco Use Types Packs/Day Years Used Date Smoking Tobacco: Never Assessed Sex and Gender Information Value Date Recorded Sex Assigned at Not on file Legal Sex Male 2:17 PM CDT Gender Identity Not on file Sexual Orientation Not on file documented as of this encounter Plan of Treatment Scheduled Orders Name Type Priority Associated Diagnoses Orde r Schedule MR prostate without & with IV contrast Imaging Routine Elevated prostate specific antigen (PSA) Expected: 10/28/2024, Expires: 11/28/2025 documented as of this encounter Visit Diagnoses Diagnosis Elevated prostate specific antigen (PSA)- Primary documented in this encounter
--- OUTSIDE RECORDS SUMMARY | 2024-11-21 14:29 | XMS_ITS | Continuity of Care Document ---
Author Organization [facility] Address [address] [facility] [address] [place] [address] Care Team Providers Care Safety Grooving Machine Operator Name Role Phone BEST YANES Referring Provider [phone] Assessment Encounter Date Assessment Date Assessment LastModified by Organization Details LastModified Time 10/08/2024 10/08/2024 ASSESSMENT: Isac Dubon is a 64-year-old male with elevated PSA levels. PLAN: 1. Ordered an MRI to evaluate the prostate for any abnormalities. 2. Prescribed oxybutynin 5 mg twice a day to manage urinary urgency. The patient was advised that it might take a couple of weeks to notice a difference and to monitor for any side effects such as dry mouth or changes in urine stream. 3. Plan to follow up with the patient in about four weeks to discuss MRI results. Please note this report was created using voice recognition/text compilation software with [employer] documentation services during the encounter with the patient; Please excuse any errors due to the spanish moss picker process. [email or web address] Not available 10/08/2024 15:12:44 Plan of Treatment Reminders Order Date Submit Date Provider Last Modified By Organization Details Last Modified Time Details Appointments TELEPHONI C VISIT 15 2024 08:30A Kristi Kaplan NP Not available Not available Not available Lab urinalysi s, dipstick 2024 025 [email or web address] [facility], [address] [facility] [address], [place], [address], 10/08/2024 15:13:45 Referral None recorded. Procedures None recorded. Surgeries None recorded. Imaging MRI, prostate, w/wo contrast 2024 025 [email or web address] [facility] Scheduling, [address], [place], [address], 11/16/2024 10:00:32 Medication Orders oxybutyni n chloride 5 mg tablet 2024 025 PARVEEN Kingsley [facility], [address], [place], [id number], 10/09/2024 09:47:53 Patient TargetsNo targets recorded. Patient InstructionsNo instructions recorded. Reason for Referral None Reported. Results Created Date Observation Date Name Description Value Unit Range Abnormal Flag Note LastModifiedBy Organization Detail LastModifiedTime 10/09/1910/08/2024 urina lysis , dipst ick Leukocytes (reference range) negati ve Not Available [place] [address] [address] [facility] [address], [place], [address], 10/08/2024 14:53:55 10/09/19 25 10/08/2024 urina lysis , dipst ick Nitrite (reference range:) negati ve Not Available [place] [address] [address] [facility] [address], [place], [address], 10/08/2024 14:53:55 10/09/19 25 10/08/2024 urina lysis , dipst ick Urobilinogen (reference range) 0.2 Not Available [place] [address] [address] [facility] [address], [place], [address], 10/08/2024 14:53:55 10/09/19 25 10/08/2024 urina lysis , dipst ick Protein (reference range) negati ve Not Available [place] [address] [address] [facility] [address], [place], [address], 10/08/2024 14:53:55 10/09/19 25 10/08/2024 urina lysis , dipst ick pH (reference range 5-8.5) 6.0 Not Available [place] [address] [address] [facility] [address], [place], [address], 10/08/2024 14:53:55 10/09/19 25 10/08/2024 urina lysis , dipst ick Blood (reference range:) negati ve Not Available [place] [address] [address] [facility] [address], [place], [address], 10/08/2024 14:53:55 10/09/19 25 10/08/2024 urina lysis , dipst ick Specific [place] (reference range) 1.020 Not Available [place] [address] [address] [address], [place], [address], 10/08/2024 14:53:55 10/09/19 25 10/08/2024 urina lysis , dipst ick Ketone (reference range) negati ve Not Available [place] [address] [address] [facility] [address], [place], [address], 10/08/2024 14:53:55 10/09/19 25 10/08/2024 urina lysis , dipst ick Bilirubin (reference range) negati ve Not Available [place] [address] [address] [facility] [address], [place], [address], 10/08/2024 14:53:55 10/09/19 25 10/08/2024 urina lysis , dipst ick Glucose (reference range) negati ve Not Available [place] [address] [address] [facility] [address], [place], [address], 10/08/2024 14:53:55 10/09/19 25 10/08/2024 urina lysis , dipst ick Color (reference range: yellow-brown ) Yellow Not Available [place] [address] [address] [facility] [address], [place], [address], 10/08/2024 14:53:55 Result Notes None recorded. Problems Name Problem SNOMED Code Status Onset Date Resolution Date Notes Provider Name and Address Organization Details Recorded Time Nocturia 141693748 Active 024 OLGA DAVILA MD [address], [place], [address] , [facility] & [place] 4 16:07:50 Urgent desire to urinate 89142482 Active 025 OLGA DAVILA MD [address], [place], [address] , [facility] & [place] 5 15:12:36 Prostate specific antigen above reference range 354618051 Active 024 OGLA DAVILA MD [address], [place], [address] , [facility] & [place] 5 15:12:26 Slowing of urinary stream 97854290 Active 024 Lina Sampson [facility], [facility] & [place] 4 12:49:38 Problem Notes None recorded. Medical Equipment None Reported. Allergies No known drug allergies Medications Name Sig Start Date Stop Date Status Note LastModified by Organization Details LastModified Time latanoprost 0.005 % eye drops 08/13 completed Not Available Not Available Not Available atorvastatin 40 mg tablet active Not Available Not Available Not Available promethazine -DM 6.25 mg-15 mg/5 mL oral syrup 08/13 completed Not Available Not Available Not Available doxycycline hyclate 100 mg capsule 08/13 completed Not Available Not Available Not Available azithromycin 250 mg tablet 08/13 completed Not Available Not Available Not Available tizanidine 4 mg tablet TAKE ONE TABLET BY MOUTH EVERY 8 HOURS FOR 10 DAYS active Not Available Not Available No t Available hydrocodone 5 mg-acetamino phen 325 mg tablet TAKE ONE TABLET BY MOUTH EVERY 6 HOURS FOR SEVEN DAYS active Not Available Not Available No t Available prednisone 20 mg tablet active Not Available Not Available Not Available acetazolamid e 250 mg tablet 08/13 completed Not Available Not Available Not Available sulfamethoxa zole 800 mg-trimethop rim 160 mg tablet Take 1 tablet every 12 hours by oral route for 3 days. active Not Available Not Available No t Available hydrocodone 10 mg-acetamino phen 325 mg tablet TAKE ONE TABLET BY MOUTH EVERY 6 HOURS FOR SEVEN DAYS active Not Available Not Available No t Available ketorolac 0.5 % eye drops 08/13 completed Not Available Not Available Not Available tamsulosin 0.4 mg capsule TAKE ONE CAPSULE BY MOUTH AT BEDTIME active Not Available Not Available No t Available trazodone 100 mg tablet TAKE ONE TABLET BY MOUTH AT BEDTIME active Not Available Not Available No t Available erythromycin 5 mg/gram (0.5 %) eye ointment 08/13 completed Not Available Not Available Not Available trazodone 150 mg tablet TAKE 1 TABLET BY MOUTH AT BEDTIME FOR 15 DAYS active Not Available Not Available No t Available oseltamivir 75 mg capsule TAKE 1 CAPSULE BY MOUTH EVERY 12 HOURS FOR 5 DAYS 08/13 completed Not Available Not Available Not Available polymyxin B sulfate 10,000 unit-trimeth oprim 1 mg/mL eye drops 08/13 completed Not Available Not Available Not Available tacrolimus 0.03 % topical ointment 08/13 completed Not Available Not Available Not Available brimonidine 0.2 % eye drops instill 1 drop into BOTH eyes TWICE DAILY active Not Available Not Available No t Available dorzolamide 22.3 mg-timolol 6.8 mg/mL eye drops INSTILL 1 DROP IN EACH EYE TWICE DAILY active Not Available Not Available No t Available oxybutynin chloride 5 mg tablet TAKE 1 TABLET BY MOUTH TWICE DAILY active Not Available Not Available No t Available cefdinir 300 mg capsule Take 1 capsule every 12 hours by oral route for 30 days. 11/18 completed Not Available Not Available Not Available rosuvastatin 10 mg tablet TAKE 1 TABLET BY MOUTH ONCE DAILY active Not Available Not Available No t Available Simbrinza 1 %-0.2 % eye drops,suspen deann 08/13 completed Not Available Not Available Not Available Vyzulta 0.024 % eye drops INSTILL 1 DROP AT BEDTIME INTO BOTH EYES active Not Available Not Available No t Available Vitals Date Recorded Body height Body mass index (BMI) Body weight Body temperature Oxygen saturation Oxygen saturation in Arterial blood by Pulse oximetry Heart rate Systolic blood pressure Diastolic blood pressure Provider Name and Address Organization Details Last Updated DateTime 175.26 cm 22.2 kg/m2 09430.5 7 g 97.7 [degF] 100 % 100 % 70 /min 127 mm[Hg] 70 mm[Hg] Lina Sampson [place] - [facility] - [place] & [place] 14:53:06 Social History None recorded. 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 Family History Relationship Description Onset Age of this Age Resolved Age Notes LastModified by Organization Details LastModified Time Mother Chronic obstructive pulmonary disease pt. added direct ly (08/10) [email or web address] Not available 08/11/2023 14:29:16 Father Chronic obstructive pulmonary disease pt. added direct ly (08/10) [email or web address] Not available 08/11/2023 14:29:16 Medical History No medical history recorded. Past Encounters Encounter ID Performer Location Encounter Start Date Encounter Closed Date Diagnosis/Indication Diagnosis SNOMED-CT Code Diagnosis ICD10 Code Diagnosis Note [id number] OLGA DAVILA MD [facility] [place] [address] 10/08/2024 13:43:52 10/08/2024 15:14:53 Prostate specific antigen above reference range 166593560 R97.20 Urgent chinedu carrington to urinate 74903243 R39.15 Health Concerns Section Related Observation LastModified by Organization Detai ls LastModified Time None Recorded Concern Status LastModified by Organization Details LastModified Time None Recorded Payers Encounter Date Sequence Insurance Name Policy Number Policy Holman Covered Member ID Holman Member ID Guarantor Name 10/08/2024 1 [employer] [id number] Isac Dubon [id number] Isac Dubon Notes Date Note Type Note Provider Name and Address Organization Details Recorded Time 10/08/2024 text/html 10/08/24 Patient returns for slowing of urination and PSA results 9.2. ----- 03/24/24Patient returns for follow up after undergoing prostate biopsy on 03/13/2024. Benign tissue was found in all 12 cores.Patient has done well since biopsy, he denies any fevers, dysuria, or gross hematuria. 02/25/24 (Eusebio ROWLAND)63 yowm RTC for f/u of PSA results. PSA was 7.8 on 02/17/2024. 4K score on 10/29/2023 revealed 4k score 10.6, PSA 4.80, and % free PSA was 21 suggest a 23.9% probability of finding prostate cancer by needle biopsy. Urinary stream is good, on Tamsulosin 0.4mg daily. Nocturia x1. He denies any dysuria gross hematuria. Patient is adopted and unsure of family history of prostate cancer.Previous PSAs: 8.8 on 10/19/2023 (after 3 week course of Cefdinir), 12.4 on 08/14/2023 *09/24/24 PSA 9.210 TRUS bx: ciqunx85/19/24 PSA 7.8010/29/23 PSA 4.8. 4K score 10.6010/19/23 PSA 8.803 PSA 12.4Isac Dubon is a 64-year-old male who presents for a follow-up visit. PSA is up to 9.2, which is an increase from 7.8 back in February. A biopsy performed at that time was negative. In August of last year, PSA was 12. The patient has had two hip surgeries in the past. He does not want to undergo another biopsy. The patient has been experiencing urgency with urination but has not had any accidents. He occasionally dribbles urine. The force of the urine stream is good. He is currently taking Tamsulosin at bedtime. Not Available [employer] 10/08/2024 15:24:08
--- OUTSIDE RECORDS SUMMARY | 2024-11-21 14:29 | XMS_ITS | Encounter Summary ---
Author Organization Healthcare Address [address] [place] [address] Care Team Providers Care Flow Match Sofa Cutter Name Role Phone Mello Sanchez MD Primary Care Provider [phone] Encounter Details Date Type Department Care Team (Late st Contact Info) Description 10/07/2024 Telephone apprupt [facility] [address] [place] [address] Panfilo Hernandez MD [address] [address] Social History Tobacco Use Types Packs/Day Years Used Date Smoking Tobacco: Former Cigarettes 1 43 1 976 - 2019 Passive Smoke Exposure: Past Smokeless Tobacco: Never Sex and Gender Information Value Date Recorded Sex Assigned at Not on file Legal Sex Male 8:37 PM EDT Gender Identity Not on file Sexual Orientation Not on file documented as of this encounter Miscellaneous Notes * Telephone Encounter - Srinivasan Mak - 10/07/2024 3:15 PM EDT Triage Note 10/07/2024 3:16 PM Shared recs with Vanessa. She states that no one has contacted her about cost of SLT. Advised I am unable to provide her with this information. Advised that I would forward to Glaucoma medical support specialist for further care coordination. * Telephone Encounter - Srinivasan Mak - 10/07/2024 1:03 PM EDT Triage Note 10/07/2024 1:03 PM Last used in July. Eyes swelled up. Patient is unable to use Brimonidine. Advised patient's spouse that I would reach out to Dr. Hernandez for additional instructions. documented in this encounter Plan of Treatment Upcoming Encounters Date Type Department Care Team (Late st Contact Info) Description 01/04/2025 11:30 AM EDT Office Visit [facility] [address] [place] [address] Panfilo Hernandez MD [address] [address] documented as of this encounter Visit Diagnoses Not on filedocumented in this encounter Additional Health Concerns Assessment Noted Time A fall risk assessment has been complete d for the patient 10/05/2024 9:54 AM EDT A Body Mass Index follow-up plan has been documented for the patient 10/05/2024 10:51 AM EDT documented as of this encounter Care Teams Flow Match Sofa Cutter Relationship Specialty Start Date End Date Mello Sanchez MD [address] [place] [address] [address] [place] [address] PCP - General 10/14/20 documented as of this encounter
--- OUTSIDE RECORDS SUMMARY | 2024-11-21 14:29 | XMS_ITS | Data Portability ---
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 [email or web address] Not available 10/08/2024 15:12:44 Plan of Treatment Reminders Order Date Submit Date Provider Last Modified By Organization Details Last Modified Time Details Appointments TELEPHONI C VISIT 15 2024 08:30A Kristi Kaplan NP Not available Not available Not available Lab urinalysi s, dipstick [address] [facility], [address], [place], [address], 10/08/2024 15:13:45 PSA, serum or plasma 2023 025 [facility] (Registration ), [address] , [place], [address], 09/24/2024 18:16:43 PSA, serum or plasma 2023 024 [facility] (Registration ), [address] , [place], [address], 02/17/2024 18:00:58 PSA, serum or plasma 2023 024 [facility] (Registration ), [address], [place], [address], 11/19/2023 10:03:54 Referral None recorded. Procedures None recorded. Surgeries None recorded. Imaging MRI, prostate, w/wo contrast 2024 025 [email or web address] [facility] Scheduling, [address], [place], [address], 11/16/2024 10:00:32 Medication Orders oxybutyni n chloride 5 mg tablet 2024 025 [facility], [address] [place] [address], [id number], 10/09/2024 09:47:53 Bactrim DS 800 mg-160 mg tablet 2023 024 [facility], [address] [place] [address], [id number], 02/25/2024 15:21:43 Patient TargetsNo targets recorded. Patient InstructionsNo instructions recorded. Reason for Referral None Reported. Results Created Date Observation Date Name Description Value Unit Range Abnormal Flag Note LastModifiedBy Organization Detail LastModifiedTime 02/17/2002/17/2024 PROST ATE SPECI FIC AG (PSA) prostate specific Ag (PSA) 7.8 NG/mL 0-4.0 high Not Available [facility] ([facility]) [address], [place], [address], 02/17/2024 18:00:58 09/25/19 25 09/24/2024 PROST ATE SPECI FIC AG (PSA) prostate specific Ag (PSA) 9.2 NG/mL 0-4.0 high Not Available [facility] ([facility]) [address], [place], [address], 09/24/2024 18:16:43 10/09/1910/08/2024 urina lysis , dipst ick Leukocytes (reference range) negati ve Not Available [place] [address] [address] [facility] 100, [place], [address], 10/08/2024 14:53:55 10/09/19 25 10/08/2024 urina lysis , dipst ick Nitrite (reference range:) negati ve Not Available [place] [address] [address] [facility] 100, [place], [address], 10/08/2024 14:53:55 10/09/19 25 10/08/2024 urina lysis , dipst ick Urobilinogen (reference range) 0.2 Not Available [facility] [place] [address] [address] [facility] 100, [place], [address], 10/08/2024 14:53:55 10/09/19 25 10/08/2024 urina lysis , dipst ick Protein (reference range) negati ve Not Available [place] [address] [address] [facility] 100, [place], [address], 10/08/2024 14:53:55 10/09/19 25 10/08/2024 urina lysis , dipst ick pH (reference range 5-8.5) 6.0 Not Available [facility] [place] [address] [address] [facility] [address], [place], [address], 10/08/2024 14:53:55 10/09/19 25 10/08/2024 urina lysis , dipst ick Blood (reference range:) negati ve Not Available [place] [address] [address] [facility] [address], [place], [address], 10/08/2024 14:53:55 10/09/19 25 10/08/2024 urina lysis , dipst ick Specific [place] (reference range) 1.020 Not Available [place] [address] [address] [facility] 100, [place], [address], 10/08/2024 14:53:55 10/09/19 25 10/08/2024 urina lysis , dipst ick Ketone (reference range) negati ve Not Available [place] [address] [address] [facility] [address], [place], [address], 10/08/2024 14:53:55 10/09/19 25 10/08/2024 urina lysis , dipst ick Bilirubin (reference range) negati ve Not Available [place] [address] [address] [facility] [address], [place], [address], 10/08/2024 14:53:55 10/09/19 25 10/08/2024 urina lysis , dipst ick Glucose (reference range) negati ve Not Available [place] [address] [address] [facility] [address], [place], [address], 10/08/2024 14:53:55 10/09/19 25 10/08/2024 urina lysis , dipst ick Color (reference range: yellow-brown ) Yellow Not Available [place] [address] [address] [facility] 100, [place], [address], 10/08/2024 14:53:55 Result Notes None recorded. Problems Name Problem SNOMED Code Status Onset Date Resolution Date Notes Provider Name and Address Organization Details Recorded Time Nocturia 233088216 Active 024 OLGA DAVILA MD [address] [place], [address] , [facility] - [facility] - [place] & [place] 4 16:07:50 Urgent desire to urinate 36938722 Active 025 OLGA DAVILA MD [address], [place], [address] , [facility] - [facility] & [place] 5 15:12:36 Prostate specific antigen above reference range 300083780 Active [address], [place], [address] , [facility] - [facility] & [place] 5 15:12:26 Slowing of urinary stream 78963669 Active 024 Lina tafoyaCUBERO, [place] - [facility] & [place] 4 12:49:38 Problem Notes None recorded. Procedures Surgical History None recorded. Imaging Results None recorded. Procedure Notes Documentation Provider Name and Address Organization Details Recorded Time Operative/Procedure Note [facility] Name Isac Dubon Date of Service 0904 [id number] (M) Attending GIOVANNI Chua PHY Admitted [id number] [facility] [address] Pre-Procedure Diagnosis elevated PSA Post- Procedure Diagnosis same Procedure / Surgery None 1. Transrectal ultrasound of prostate ( CPT 94629) 2. Transrectal ultrasound-guided prostate biopsies ( CPT 43134 Anesthesia Type General anesthesia Estimated Blood Loss minimal Complications None Procedure Description / Findings after informed consent was obtained from the patient, he was taken to the operating room where he was placed in a comfortable supine position on procedure table. A time-out was performed confirming correct patient, correct procedure, and correct operative site. General anesthesia was induced and preoperative IV antibiotics were administered. He was then rolled to a left lateral decubitus position We began the procedure by instilling 10 cc of Betadine into the rectal vault. The transrectal ultrasound probe was then introduced. Prostate was visualizing the following measurements were obtained: Width 5 2 cm, 4.0 cm, length 6.0 cm, volume 64.9 cc. At this time we performed a prostatic block using 10 cc of lidocaine 1%. We then began prostate biopsies in a sextant fashion. Six cores were obtained from the patient's right side with each core marked with a its corresponding location. This was then repeated on the patient's left side with an additional 6 cores taken for a total of 12. After the cores were obtained the procedure was terminated the transrectal probe was removed and the patient was awoken and transferred to the PACU in stable condition. Specimens Prostate biopsies X 12 Tubes/Drains None Implants None Disposition of Patient stable to PACU 1 of 2 Operative/Procedure Note [facility] Name Isac Dubon Date of Service 0904 [id number] (M) Attending GIOVANNI ODONNELL Admitted [id number] Discharged Primary [facility] [address] Electronically signed by GIOVANNI ODONNELL on 0907 2 of 2 CC'ed Logic: Ordering Provider: GIOVANNI ESPINOZA Attending Provider: GIOVANNI ESPINOZA Admitting Provider: ROHIT Hawkins [facility] 03/19/2024 13:42:42 Medical Equipment None Reported. Allergies No known [...] and Address Organization Details Last Updated DateTime 5 175.26 cm 22.2 kg/m2 37733.5 7 g 97.7 [degF] 100 % 100 % 70 /min 127 mm[Hg] 70 mm[Hg] Lina BEE JUVE [facility] & [place] 5 14:53:06 Date Recorded Body height Body mass index (BMI) Body weight Body temperature Systolic blood pressure Diastolic blood pressure Provider Name and Address Organization Details Last Updated DateTime 4 175.26 cm 23.3 kg/m2 75253.5 9 g 97.7 [degF] 120 mm[Hg] 74 mm[Hg] Linamarcela BEE [facility] & [place] 4 09:38:32 Date Recorded Body height Body mass index (BMI) Body weight Body temperature Oxygen saturation Oxygen saturation in Arterial blood by Pulse oximetry Heart rate Systolic blood pressure Diastolic blood pressure Provider Name and Address Organization Details Last Updated DateTime 4 175.26 cm 22.4 kg/m2 19613.6 g 98.8 [degF] 100 % 100 % 68 /min 173 mm[Hg] 90 mm[Hg] Linamarcela BEE [facility] & [place] 4 14:50:05 Date Recorded Body height Body mass index (BMI) Body weight Body temperature Oxygen saturation Oxygen saturation in Arterial blood by Pulse oximetry Heart rate Systolic blood pressure Diastolic blood pressure Provider Name and Address Organization Details Last Updated DateTime 4 175.26 cm 22.4 kg/m2 44027.3 2 g 98 [degF] 100 % 100 % 70 /min 176 mm[Hg] 80 mm[Hg] [facility]arcela [facility]EE [facility] [place] 4 15:55:20 Social History None recorded. Functional Status Question [...] SNOMED-CT Code Diagnosis ICD10 Code Diagnosis Note [id number] Lis Kaplan NP, S [facility] [address] [place] [address],[address] [place] [address] 08/14/2023 13:22:26 08/14/2023 14:34:38 Urge incontinence of urine 34807604 N39.41 Nocturia 255859771 R35.1 Screening for malignant neoplasm of prostate 778875802 Z12.5 Slowing of urinary stream 83928542 R39.12 UA clearBladd er scan 31ccStart Tamsulosin 0.4mg dailyScree annabelle PSARTC in 8 weeks for f/u Large prostate 501468963 N40.0 [id number] Lis Kaplan NP, S [facility] [address] [place] [address],[address] [place] [address] 10/09/2023 15:08:49 10/09/2023 16:13:00 Slowing of urinary stream 49730180 R39.12 Urge incon tinence of urine 33427527 N39.41 Nocturia 755238051 R35.1 Large prostate 152365049 N40.0 Prostate s pecific antigen above reference range 766883412 R97.20 PSA order provided to pt to have performed. Continue Tamsulosin 0.4mg daily. RFs providedRT C in 2 weeks for f/u of PSA results [id number] Lis Kaplan NP, S [facility] [address] [place] [address],[address] [place] [address] 10/23/2023 11:27:44 10/23/2023 11:56:04 Prostate specific antigen above reference range 638878586 R97.20 PSA results reviewed and discussed with pt in clinic. PSA did come down slightly but still elevated at 8.8. Options discussed of 4K score or prostate MRI. Patient prefers to have 4K score performed at this time. Will order 4k Score. RTC on next Soumya to have 4k score performed. Continue Tamsulosin 0.4mg daily Slowing of urinary stream 23563827 R39.12 Nocturia 068995096 R35.1 [id number] Lis Kaplan NP, S [facility] [address] [place] [address],[facility] e [address] [place] [address] 4 10/29/2023 08:19:14 10/29/2023 08:53:59 Prostate specific antigen above reference range 877222358 R97.20 Pt here for 4k score lab draw. Pt verified by name and date of . Butterfly needle used and blood drawn from the LAC x1 stick. Pressure held and bandaid applied over site. pt tolerated well. [id number] [facility] [address] [place] [address],[facility] [address] [place] [address] 4 11/19/2023 09:21:43 11/19/2023 10:10:18 Prostate specific antigen above reference range 420443577 R97.20 4k score results reviewed and discussed with pt in clinic. 4k score results low and PSA much improved from previousRT C in 3 months for f/u with PSA. PSA order provided for pt to do a few days prior to appt so results can be discussed with him at this time Slowing of urinary stream 84008125 R39.12 [id number] Lis Kaplan [facility] [address] [facility] [address] [place] [address] 02/17/2024 15:12:26 02/17/2024 15:27:12 Prostate specific antigen above reference range 068283567 R97.20 PSA order provided to pt to have performed. Will call pt with resultsRTC in 4 months for f/u with PSA Nocturia 304691217 R35.1 Slowing of urinary stream 76406671 R39.12 [id number] Lis Kaplan NP, S [facility]-1 00 [address] [facility] [address] [place] [address] 02/25/2024 14:00:06 02/25/2024 15:05:09 Prostate specific antigen above reference range 174550457 R97.20 PSA results discussed with pt in clinic. PSA has increased from 4.80 to 7.8.Recomm ended TRUS/BXs for further evaluation of Elevated PSA. Pt agrees to move forward with this.Pt will be NPO after midnight night before procedure. Will need to bring pick up and delivery driver day of procedure. No ASA or NSAIDs 1 week prior to procedure. Risks of procedure discussed in detail that includes but not limited to infection, bleeding, urinary retention with possible need for ricks cath, pain, and anesthesia risks. Discussed after procedure may expect blood tinged urine/darrius l movements, soreness or dull ache in the rectum for 1-3 days, and bleeding after sexual intercours e.Do fleets enema prior 3-4 hours prior to biopsy. Will send antibiotic s to pts pharmacy to start 3 days prior to procedure. [id number] OLGA DAVILA MD [facility]-1 00 [address] [facility] [address] [place] [address] 03/24/2024 15:33:23 03/24/2024 16:09:05 Prostate specific antigen above reference range 893266277 R97.20 Negative biopsy results reviewed with patient. We will repeat PSA in 6 months. Slowing of urinary stream 26389352 R39.12 Urinary symptoms stable. Patient will continue tamsulosin [id number] OLGA DAVILA MD [facility]-1 00 [address] [facility] [address] [place] [address] 10/08/2024 13:43:52 10/08/2024 15:14:53 Prostate specific antigen above reference range 404375927 R97.20 Urgent chinedu carrington to urinate 13668031 R39.15 Health Concerns Section Related Observation LastModified by Organization Detai ls LastModified Time None Recorded Concern Status LastModified by Organization Details LastModified Time None Recorded Advance Directives Directive None Recorded Payers Insurance Date Sequence Insurance Name Policy Number Policy Holman Covered Member ID Holman Member ID Guarantor Name 11/02/2024 1 [facility] ([facility] [id number] Isac Dubon [id number] Isac Dubon Notes Date Note Type Note Provider Name and Address Organization Details Recorded Time 11/19/2023 text/html 64 yowm RTC for f/u of 4k Score Results. 4K score on 10/29/2023 revealed 4k score 10.6, PSA 4.80, and % free PSA was 21 suggest a 23.9% probability of finding prostate cancer by needle biopsy. Urinary stream is good, on Tamsulosin 0.4mg daily. Nocturia x1. He denies any dysuria gross hematuria. Patient is adopted and unsure of family history of prostate cancer. Previous PSAs: 8.8 on 10/19/2023 (after 3 week course of Cefdinir), 12.4 on 08/14/2023 Lis Kaplan NP, S [address] [facility], [place], [address], [facility] & [place] 11/19/2023 10:09:34 02/17/2024 text/html 63 yowm RTC for 3 month f/u of Elevated PSA. Has not had a recent PSA. 4K score on 10/29/2023 revealed 4k score 10.6, PSA 4.80, and % free PSA was 21 suggest a 23.9% probability of finding prostate cancer by needle biopsy. Urinary stream is good, on Tamsulosin 0.4mg daily. Nocturia x1. He denies any dysuria gross hematuria. Patient is adopted and unsure of family history of prostate cancer. Previous PSAs: 8.8 on 10/19/2023 (after 3 week course of Cefdinir), 12.4 on 08/14/2023 Lis Kaplan NP, S [address] [facility], [place], [address], [facility] & [place] 02/17/2024 15:27:06 02/25/2024 text/html 63 yowm RTC for f/u of PSA results. [...] and unsure of family history of prostate cancer. Previous PSAs: 8.8 on 10/19/2023 (after 3 week course of Cefdinir), 12.4 on 08/14/2023 Lis Kaplan NP, S [address], [place], [address], [facility] - [facility] & [place] 02/25/2024 15:19:45 03/24/2024 text/html 03/24/24 Patient returns for follow up after undergoing prostate CA on 03/13/2024. Benign tissue was found in all 12 cores. Patient has done well since biopsy, he denies any fevers, dysuria, or gross hematuria.-------- ---------02/25/24 (Eusebio ROWLAND) 63 yowm RTC for f/u of PSA results. [...] week course of Cefdinir), 12.4 on 08/14/2023 * 03/13/24 TRUS bx: benign 02/20/24 PSA 7.8010/29/23 PSA 4.8. 4K score 10.6010/19/23 PSA 8.803 PSA 12.4 OLGA DAVILA MD [address], [place], [address], [facility] - [facility] & [place] 03/31/2024 09:32:00 10/08/2024 text/html 10/08/24 Patient returns for slowing of urination and PSA results 9.2. ----- 03/24/24Patient returns for follow up after undergoing prostate biopsy on 03/13/2024. Benign tissue was found in all 12 cores.Patient has done well since biopsy, he denies any fevers, dysuria, or gross hematuria. 02/25/24 (Eusebio ROWLAND)63 yowm [facility] for f/u of PSA results. PSA was [...] on 08/14/2023 *09/24/24 PSA 9.210 TRUS bx: scipsk83/19/24 PSA 7.8010/29/23 PSA 4.8. 4K score 10.605 PSA 8.803 PSA 12.4Isac Dubon is a [...] currently taking Tamsulosin at bedtime. Not Available [facility] 10/08/2024 15:24:08
[2024-11-21 14:37] VITALS: BP 88/63; PULSE 55; RESP 19; TEMP 36.6; O2SAT 100; BMI 18.0
--- NOTE | 2024-11-21 14:39 | ED_ITS ---
Discharge Plan Disposition Patient Disposition: Home, Self-Care Prescriptions Prescriptions: New albuterol sulfate 90 mcg/actuation aerosol powdr breath activated 1 inh inhalation Q4H PRN (Reason: shortness of breath or wheezing) 7 Days Qty: 1 0RF No Action aspirin 81 mg tablet 81 mg PO DAILY rosuvastatin [Crestor] 10 mg tablet 10 mg PO DAILY Qty: 30 2RF oseltamivir [Tamiflu] 75 mg capsule 75 mg PO Q12H 5 Days Qty: 10 0RF Referrals Follow up/Referrals: Augie (ED),ARABELLA Kim [Primary Care Provider, Emergency Medicine] - See instructions Jermaine Song MD [Staff Physician, Urology] - See instructions Activity Restrictions/Add. Instructions Additional Instructions/Restrictions: Today you were evaluated in the emergency department, you have a Goldsmith catheter in place. Please follow-up with urology for further evaluation. Return to the ED for any worsening of your condition. Clinical Impressions Clinical Impression: Acute urinary retention Instructions Patient Instructions: DI for Urinary Retention in Men Print Language Print Language: [place] Citizen Discharge ED Provider: Teresita Preez General Adult HPI <Chiqui Lopez APRN - Last Filed: 11/21/24 15:58> General Chief complaint: Urogenital-Male Stated complaint: Lower abd. pain, haven't urinated Time Seen by Provider: 11/21/24 14:26 History of Present Illness HPI narrative: patient is a 64-year-old male PMHx HTN, HLD, history of SVT who presents to the ED for urinary retention. Patient and spouse report patient drink 5 beers last night and had urinary retention after. Has been unable to urinate today. Related Data Home Medications ?Medication ?Instructions ?Recorded ?Confirmed aspirin 81 mg tablet 81 mg PO DAILY 01/17/2302/01 Previous Rx's ?Medication ?Instructions ?Recorded rosuvastatin 10 mg tablet (Crestor) 10 mg PO DAILY #30 tabs 01/17/23 oseltamivir 75 mg capsule (Tamiflu) 75 mg PO Q12H 5 da ys #10 caps 06/23/23 albuterol sulfate 90 mcg/actuation 1 inh inhalation Q4 H PRN shortness 11/21/24 breath activated powder inhaler of breath or wheezing 7 days #1 ea Allergies Allergy/AdvReac Type Severity Reaction Status Date / Time No Known Allergies Allergy Verified 02/13/23 08:48 PFSH <Chiqui Lopez APRN - Last Filed: 11/21/24 15:58> [facility] Disclaimer: The information contained in this section may have been updated after the patient was seen, as this information can be updated by other users. 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 current occupational exposures/hazards: No caffeine: Yes Have you lived/traveled outside [place] in past 30 days?: No Contact w/someone who lives/traveled outside US past 30 days?: No Exposure to someone with infectious disease in past 14 days?: No Do you have a fever (greater than 100.4 F or 38 C)?: No Have you tested positive for COVID-19?: No Exposed to someone with COVID-19 in past 14 days?: No Do you have a sore throat?: No Do you have a cough?: No Do you have any weakness?: No Do you have any diarrhea?: No Are you experiencing any unusual bleeding?: No Do you have any muscle aches/pain?: No Do you have any abdominal pain?: No Are you experiencing loss of taste or smell?: No Other Medical History Have you received the Flu Vaccine for this season: Yes Have you received the Pneumonia Vaccine: Yes <Chiqui Lopez APRN - Last Filed: 11/21/24 15:58> ROS Obtained: Yes Systems reviewed as appropriate & no additional complaints except as documented Physical Exam <Chiqui Lopez APRN - Last Filed: 11/21/24 15:58> General General appearance: alert and in no apparent distress Head Head exam: atraumatic Neck Neck exam: Present full ROM Chest Chest inspection: Present symmetric chest wall rise Respiratory Respiratory exam: Absent respiratory distress Cardiovascular Cardiovascular exam: Present regular rate Neurological Exam Neurological exam: Present alert Medical Decision Making <Chiqui Lopez APRN - Last Filed: 11/21/24 15:58> Medical Records Screening: Per USPSTF and CDC recommendations, given the prevalence of disease in our region, it is our hospital?s policy to screen for HIV and viral Hepatitis for all patients aged 18 and over and those with ongoing risk factors. Gurpreet Inquiry Pt receiving controlled substance: No Vital Signs: 11/21/24 14:37 11/21/24 14:43 11/21/24 15:01 Temperature 97.8 F Temperature Source Oral Pulse Rate 60 61 Pulse Rate [Right Radial] 55 L Respiratory Rate 19 Blood Pressure 163/76 H 107/86 L Blood Pressure [Right Arm] 88/63 L Blood Pressure Mean Blood Pressure Mean [Right Arm] 71 Blood Pressure Source Blood Pressure Position 02 Sat by Pulse Oximetry 100 97 97 Oxygen Delivery Method Room Air 11/21/24 15:31 11/21/24 16:02 11/21/24 16:04 Temperature 98.2 F Temperature Source Temporal Artery Scan Pulse Rate 57 L 64 63 Pulse Rate [Right Radial] Respiratory Rate 18 18 Blood Pressure 148/68 H 188/74 H 188/74 H Blood Pressure [Right Arm] Blood Pressure Mean 112 Blood Pressure Mean [Right Arm] Blood Pressure Source Automatic Cuff Blood Pressure Position Sitting 02 Sat by Pulse Oximetry 99 99 Oxygen Delivery Method Room Air Lab Data Lab Results 11/21/24 14:40: Urine Color Yellow, Urine Appearance Clear, Urine pH 5.5, Ur Specific [place] 1.010, Urine Protein Negative, Urine Glucose (UA) Negative, Urine Ketones Negative, Urine Blood Negative, Urine Nitrate Negative, Urine Bilirubin Negative, Urine Urobilinogen 0.2, Ur Leukocyte Esterase Negative, Urine RBC 3-5, Urine WBC Occasional, Ur Squamous Epith Cells 3-5, Urine Bacteria 1+ 11/21/24 15:07: WBC 14.1 H, RBC 5.10, Hgb 15.3, Hct 44.3, MCV 86.9, MCH 30.0, MCHC 34.5, RDW 13.0, Plt Count 326, MPV 8.8, Neut % (Auto) 75.0, Lymph % (Auto) 17.9, [place] % (Auto) 6.3, Eos % (Auto) 0.3, Baso % (Auto) 0.2, Neut # (Auto) 10.6 H, Lymph # (Auto) 2.5, [place] # (Auto) 0.9, Eos # (Auto) 0.0, Baso # (Auto) 0.0, S odium 135 L, Potassium 4.3, Chloride 105, Carbon Dioxide 25, Anion Gap 9.3, BUN 13, Creatinine 0.70, Estimated Creat Clear 54, Estimated GFR 113, Est GFR ( Amer) 137, Glucose 92, Calcium 10.2, Total Bilirubin 0.7, AST 34, ALT 16, Alkaline Phosphatase 97, Total Protein 7.4, Albumin 4.4, Globulin 3.0, Albumin/Globulin Ratio 1.5, HCV Ab DANIEL w/Rflx PCR Qn Negative, HIV Ag/Ab Combo Qual Negative 11/21/24 15:07 11/21/24 15:07 Orders (Tests/Meds): ED MEDICATIONS Discontinued Medications Generic Name Dose Route Start Last Admin Trade Name Viktorq PRN Reason Stop Dose Admin Albuterol Sulfate 2 puff 11/21/24 14:31 11/21/24 14:44 Albuterol-Hfa 90mcg/Puff Inhaler 8gm IH 11/21/24 14:32 Not Given ONCE ONE Lactated Ringer's 1,000 mls @ 999 mls/hr 11/21/24 15:00 11/21/24 15:02 Lactated Ringer's 1000 Ml Bag IV 11/21/24 16:00 999 mls/hr .Q1H1M ONE Administration Miscellaneous 1 unit 11/21/24 14:30 11/21/24 14:44 Aerochamber/Optihaler MC 11/21/24 14:31 Not Given ONCE ONE ORDERS Category Date Time Status CBC w/Auto Diff [Complete Blood Count Auto Diff] Stat Lab 11/21/24 15:07 Completed CMP [Comprehensive Metabolic Panel] Stat Lab 11/21/24 15:07 Completed HIV Combo Stat Lab 11/21/24 15:07 Completed Hepatitis C Ab Qual. W/ RFX Stat Lab 11/21/24 15:07 Completed Urinalysis and Microscopic Stat Lab 11/21/24 14:40 Completed Medical Decision Narrative: In summary, patient is a 64-year-old male PMHx HTN, HLD, history of SVT who presents to the ED for urinary retention. Patient and spouse report patient drink 5 beers last night and had urinary retention after. Has been unable to urinate today. Patient states he has never experienced urinary retention before. He currently takes medication for his prostate and follows with his doctor in [place]. He denies fever, chills, body aches, chest pain, shortness of breath, nausea, vomiting, dysuria, hematuria. Upon initial evaluation patient is alert, oriented and cooperative. He initial blood pressure reading was lower but map normal. He states he does not take blood pressure medication at home. Patient was bladder scanned, had over 800 mL in bladder, Goldsmith catheter placed by RN, 800 mL out immediately. Patient states that he has relief. Urinalysis unremarkable for any infection. CBC remarkable for leukocytosis 14.1, stable H&H. CMP unremarkable for any actionable abnormalities. Discussed with patient that we will discharge with Goldsmith in place due to concern for continued urinary retention if we remove it. I advised him he will need to follow-up with urology next week for further evaluation. He states that he already has an appointment for 11/30, advised him to call and see if they can be evaluated sooner. Discussed that he will need to follow-up with PCP. We discussed return precautions to the ED. Pt given leg bag I was consulted by the NAKIA, and we discussed the complexity of problems being addressed. I approved the treatment and management plan for this patient's care in the emergency department, thus performing a substantial portion of the medical decision making. Teresita Perez MD <Teresita Perez MD - Last Filed: 11/22/24 07:02> Vital Signs: 11/21/24 14:37 11/21/24 14:43 11/21/24 15:01 Temperature 97.8 F Temperature Source Oral Pulse Rate 60 61 Pulse Rate [Right Radial] 55 L Respiratory Rate 19 Blood Pressure 163/76 H 107/86 L Blood Pressure [Right Arm] 88/63 L Blood Pressure Mean Blood Pressure Mean [Right Arm] 71 Blood Pressure Source Blood Pressure Position 02 Sat by Pulse Oximetry 100 97 97 Oxygen Delivery Method Room Air 11/21/24 15:31 11/21/24 16:02 11/21/24 16:04 Temperature 98.2 F Temperature Source Temporal Artery Scan Pulse Rate 57 L 64 63 Pulse Rate [Right Radial] Respiratory Rate 18 18 Blood Pressure 148/68 H 188/74 H 188/74 H Blood Pressure [Right Arm] Blood Pressure Mean 112 Blood Pressure Mean [Right Arm] Blood Pressure Source Automatic Cuff Blood Pressure Position Sitting 02 Sat by Pulse Oximetry 99 99 Oxygen Delivery Method Room Air Lab Data Lab Results 11/21/24 14:40: Urine Color Yellow, Urine Appearance Clear, Urine pH 5.5, Ur Specific [place] 1.010, Urine Protein Negative, Urine Glucose (UA) Negative, Urine Ketones Negative, Urine Blood Negative, Urine Nitrate Negative, Urine Bilirubin Negative, Urine Urobilinogen 0.2, Ur Leukocyte Esterase Negative, Urine RBC 3-5, Urine WBC Occasional, Ur Squamous Epith Cells 3-5, Urine Bacteria 1+ 11/21/24 15:07: WBC 14.1 H, RBC 5.10, Hgb 15.3, Hct 44.3, MCV 86.9, MCH 30.0, MCHC 34.5, RDW 13.0, Plt Count 326, MPV 8.8, Neut % (Auto) 75.0, Lymph % (Auto) 17.9, [place] % (Auto) 6.3, Eos % (Auto) 0.3, Baso % (Auto) 0.2, Neut # (Auto) 10.6 H, Lymph # (Auto) 2.5, [place] # (Auto) 0.9, Eos # (Auto) 0.0, Baso # (Auto) 0.0, S odium 135 L, Potassium 4.3, Chloride 105, Carbon Dioxide 25, Anion Gap 9.3, BUN 13, Creatinine 0.70, Estimated Creat Clear 54, Estimated GFR 113, Est GFR ( Amer) 137, Glucose 92, Calcium 10.2, Total Bilirubin 0.7, AST 34, ALT 16, Alkaline Phosphatase 97, Total Protein 7.4, Albumin 4.4, Globulin 3.0, Albumin/Globulin Ratio 1.5, HCV Ab DANIEL w/Rflx PCR Qn Negative, HIV Ag/Ab Combo Qual Negative Orders (Tests/Meds): ED MEDICATIONS Discontinued Medications Generic Name Dose Route Start Last Admin Trade Name Freq PRN Reason Stop Dose Admin Albuterol Sulfate 2 puff 11/21/24 14:31 11/21/24 14:44 Albuterol-Hfa 90mcg/Puff Inhaler 8gm IH 11/21/24 14:32 Not Given ONCE ONE Lactated Ringer's 1,000 mls @ 999 mls/hr 11/21/24 15:00 11/21/24 15:02 Lactated Ringer's 1000 Ml Bag IV 11/21/24 16:00 999 mls/hr .Q1H1M ONE Administration Miscellaneous 1 unit 11/21/24 14:30 11/21/24 14:44 Aerochamber/Optihaler MC 11/21/24 14:31 Not Given ONCE ONE ORDERS Category Date Time Status CBC w/Auto Diff [Complete Blood Count Auto Diff] Stat Lab 11/21/24 15:07 Completed CMP [Comprehensive Metabolic Panel] Stat Lab 11/21/24 15:07 Completed HIV Combo Stat Lab 11/21/24 15:07 Completed Hepatitis C Ab Qual. W/ RFX Stat Lab 11/21/24 15:07 Completed Urinalysis and Microscopic Stat Lab 11/21/24 14:40 Completed Medical Decision Narrative: In summary, patient is a 64-year-old male PMHx HTN, HLD, history of SVT who presents to the ED for urinary retention. Patient and spouse report patient drink 5 beers last night and had urinary retention after. Has been unable to urinate today. Patient states he has never experienced urinary retention before. He currently takes medication for his prostate and follows with his doctor in [place]. He denies fever, chills, body aches, chest pain, shortness of breath, nausea, vomiting, dysuria, hematuria. Upon initial evaluation patient is alert, oriented and cooperative. He is hemodynamically stable, blood pressure is elevated, states he does not take blood pressure medication at home. Patient was bladder scanned, had over 800 mL in bladder, Goldsmith catheter placed by RN, 800 mL out immediately. Patient states that he has relief. I was consulted by the NAKIA, and we discussed the complexity of problems being addressed. I approved the treatment and management plan for this patient's care in the emergency department, thus performing a substantial portion of the medical decision making. Teresita Perez MD Critical Care <Chiqui Lopez, [employer] RECLAIMER - Last Filed: 11/21/24 15:58> Critical Care Time Critical Care Time: No
[2024-11-21 14:43] VITALS: BP 163/76; PULSE 60; O2SAT 97
--- NOTE | 2024-11-21 14:45 | PC.NURSE ---
16fr ricks placed sterile technique used
[2024-11-21 14:58] LABS: Microscopic, Urine URINE MICROSCOPIC (MICROSCOPIC)
[2024-11-21 14:59] LABS: Appearance,Urine CLEAR (Clear); Bilirubin,Urine Negative (Negative); Blood, Urine Negative (Negative); Color,Urine YELLOW (Yellow); Glucose,Urine (UA) Negative (Negative); Ketones,Urine Negative (Negative); Leukocyte Esterase,Urine Negative (Negative); Nitrate,Urine Negative (Negative); PH,Urine 5.5 (5.0-8.5); Protein,Urine Negative (Negative); Urobilinogen,Urine 0.2 EU/dl (0.2)
[2024-11-21 15:01] VITALS: BP 107/86; PULSE 61; O2SAT 97
[2024-11-21] MEDS: LACTATED RINGERS 1000ML 1,000 ML 999 ML IV (15:02)
[2024-11-21 15:16] LABS: Basophils % 0.2 % (0.1-2.0); Eosinophils % 0.3 % (0.1-12.0); Hematocrit 44.3 % (42.0-52.0); Hemoglobin 15.3 g/dL (14.1-18.0); Immature Granulocytes # 0.04 10^3uL; Immature Granulocytes % 0.3 %; Lymphocytes # 2.5 K/mm3 (0.7-4.5); Lymphocytes % 17.9 % (10-50); Mean Corpuscular HGB Conc 34.5 g/dL (31.8-35.4); Mean Corpuscular Volume 86.9 fl (80-94); Mean Platelet Volume 8.8 fl (7.4-10.4); Monocytes # 0.9 K/mm3 (0.1-1.0); Monocytes % 6.3 % (1.7-9.3); Neutrophils # 10.6 K/mm3 (1.8-7.8); Nucleated Red Blood Cells # 0 10^3/uL; Nucleated Red Blood Cells % 0 %; Platelet Count 326 K/mm3 (142-424); Red Cell Distribution Width-SD 41.2 fL; White Blood Count 14.1 K/mm3 (4.8-10.8)
[2024-11-21 15:17] LABS: Bacteria,Urine 1+ /lpf; WBC,Urine Occasional #/hpf (0-3)
[2024-11-21 15:26] LABS: Alanine Aminotransferase 16 U/L (12-78); Albumin Level 4.4 g/dl (3.5-5.0); Albumin/Globulin Ratio 1.5 (1.1-1.8); Alkaline Phosphatase 97 U/L (38-126); Anion Gap 9.3 mEq/L (5-15); Aspartate Amino Transferase 34 U/L (17-59); Bilirubin,Total 0.7 mg/dl (0.2-1.3); Blood Urea Nitrogen 13 mg/dl (9-20); Calcium 10.2 mg/dl (8.4-10.2); Carbon Dioxide 25 mmol/L (22.0-30.0); Chloride 105 mmol/L (98-107); Creatinine Clearance Estimated 54 mL/min (50-200); Estimated Glomerular Filt Rate 113 ml/min (>60); GFR (African American) 137 ML/MIN (>60); Glucose 92 mg/dl (74-100); Potassium 4.3 mmoL/L (3.5-5.1); Sodium 135 mmol/L (136-145); Total Protein,Serum 7.4 g/dl (6.3-8.2)
[2024-11-21 15:31] VITALS: BP 148/68; PULSE 57; O2SAT 99
[2024-11-21 16:02] VITALS: BP 188/74; PULSE 64; RESP 18; O2SAT 99
[2024-11-21 16:04] VITALS: BP 188/74; PULSE 63; RESP 18; TEMP 36.8; O2SAT 99
--- NOTE | 2024-11-21 16:05 | PC.NURSE ---
Discharge instructions provided to patient. Pt instructed on how to use leg bag ricks catheter. vocational rehabilitation supervisor called to have leg bag sent down.
--- NOTE | 2024-11-21 16:18 | PC.NURSE ---
Charu RN at bedside changing ricks bag to leg bag. Pt shown how to use and demonstrates proper use.
[2024-11-21 16:40] LABS: HIV Combo NEGATIVE (Negative)
[2024-11-21 16:48] LABS: Hepatitis C Ab Qual. W/ RFX NEGATIVE (Negative)
== END 2024-11-21 16:22 | disposition home or self-care (01) ==
PROVIDERS: Nurse Practitioner; Emergency Provider Student in an Organized Health Care Education/Training Program; PCP Nurse Practitioner
DX: R33.9 Retention of urine, unspecified (principal); Z11.59 Encounter for screening for other viral diseases; Z11.4 Encounter for screening for human immunodeficiency virus [HIV]
CPT/HCPCS: 80053; 81001; 85025; 86803; 87389; 96360; 99284; J7120